=== PATIENT | female | born 1985 | race Caucasian/White ===

== ENCOUNTER 2016-11-04 15:24 | Emergency (ER) | payer MEDICAID ==
[2016-11-04] MEDS ORDERED: Ketorolac 60 MG/2 ML SDV IM ONE (15:32)
--- NOTE | 2016-11-04 15:35 | EDM.PDOC ---
ED HPI GENERAL MEDICAL PROBLEM - General Chief Complaint: Abdominal Pain Stated Complaint: LOWER BACK PAIN Time Seen by Provider: 11/04/16 15:29 - History of Present Illness INITIAL COMMENTS - FREE TEXT/NARRATIVE: HISTORY AND PHYSICAL: History of present illness: Patient 31-year-old female she concern of acute left lower quadrant abdominal pain she has had similar episodes in the past most recently several months prior which was related to an ovarian cyst she denies vaginal discharge irregular bleeding neurological signs or symptoms trauma or other concern Review of systems: As per history of present illness and below otherwise all systems reviewed and negative. Past medical history: As per history of present illness and as reviewed below otherwise noncontributory. Surgical history: As per history of present illness and as reviewed below otherwise noncontributory. Social history: No reported history of drug or alcohol abuse. Family history: As per history of present illness and as reviewed below otherwise noncontributory. Physical exam: HEENT: Atraumatic, normocephalic, pupils reactive, negative for conjunctival pallor or scleral icterus, mucous membranes moist, throat clear, neck supple, nontender, trachea midline. Lungs: Clear to auscultation, breath sounds equal bilaterally, chest nontender. Heart: S1S2, regular, negative for clicks, rubs, or JVD. Abdomen: Soft, nondistended, mild tenderness left lower quadrant is now localized no rebound no guarding . Negative for masses or hepatosplenomegaly. Negative for costovertebral tenderness. Pelvis: Stable nontender. Genitourinary: Deferred. Rectal: Deferred. Extremities: Atraumatic, negative for cords or calf pain. Neurovascular unremarkable. Neuro: Awake, alert, oriented. Cranial nerves II through XII unremarkable. Cerebellum unremarkable. Motor and sensory unremarkable throughout. Exam nonfocal. Diagnostics: [CBC CMP UA hCG pelvic ultrasound Therapeutics: [Toradol 60 mg IM Impression: [#1 left-sided abdominal pain Definitive disposition and diagnosis as appropriate pending reevaluation and review of above. Left Abdominal Pain Score (Numeric/FACES): 7 - Related Data Allergies Allergy/AdvReac Type Severity Reaction Status Date / Time Penicillins Allergy Other Verified 11/04/16 15:28 Home Meds: Home Meds . [No Known Home Meds] 11/04/16 [History] ED ROS GENERAL - Review of Systems Review Of Systems: ROS reveals no pertinent complaints other than HPI. ED EXAM, GENERAL - Physical Exam Exam: See Below (See dictation) Course - Vital Signs Last Recorded V/S: Last Vital Signs Temp 36.6 C 11/04/16 15:34 Pulse 95 11/04/16 15:34 Resp 18 11/04/16 15:34 BP 129/77 11/04/16 15:34 Pulse Ox 98 11/04/16 15:34 - Orders/Labs/Meds Labs: Laboratory Tests 11/04/16 11/04/16 11/04/16 Range/Units 15:40 15:40 15:40 WBC 11.26 H (4.0-11.0) K/uL RBC 4.61 (4.30-5.90) M/uL Hgb 13.2 (12.0-16.0) g/dL Hct 40.0 (36.0-46.0) % MCV 86.8 (80.0-98.0) fL MCH 28.6 (27.0-32.0) pg MCHC 33.0 (31.0-37.0) g/dL RDW Std Deviation 44.2 (28.0-62.0) fl RDW Coeff of Antony 14 (11.0-15.0) % Plt Count 386 (150-400) K/uL MPV 9.90 (7.40-12.00) fL Neut % (Auto) 63.0 (48.0-80.0) % Lymph % (Auto) 31.8 (16.0-40.0) % [place] % (Auto) 4.2 (0.0-15.0) % Eos % (Auto) 0.8 (0.0-7.0) % Baso % (Auto) 0.2 (0.0-1.5) % Neut # (Auto) 7.1 H (1.4-5.7) K/uL Lymph # (Auto) 3.6 H (0.6-2.4) K/uL [place] # (Auto) 0.5 (0.0-0.8) K/uL Eos # (Auto) 0.1 (0.0-0.7) K/uL Baso # (Auto) 0.0 (0.0-0.1) K/uL Nucleated RBC % 0.0 /100WBC Nucleated RBCs # 0 K/uL Sodium 140 (136-146) mmol/L Potassium 3.9 (3.5-5.1) mmol/L Chloride 106 (98-110) mmol/L Carbon Dioxide 26 (21-31) mmol/L BUN 7 (6.0-23.0) mg/dL Creatinine 0.6 (0.6-1.5) mg/dL Est Cr Clr Drug Dosing 113.41 mL/min Estimated GFR (MDRD) > 60.0 ml/min Glucose 105 (60-110) mg/dL Calcium 9.0 (8.8-10.8) mg/dL Total Bilirubin 0.3 (0.1-1.5) mg/dL AST 28 (5-40) IU/L ALT 50 (8-54) IU/L Alkaline Phosphatase 80 (40-150) Total Protein 8.1 H (6.0-8.0) g/dL Albumin 4.2 (3.5-5.0) g/dL Globulin 3.9 H (2.0-3.5) g/dL Albumin/Globulin Ratio 1.1 L (1.3-2.8) HCG, Qual NEGATIVE (NEG) Urine Color Urine Appearance Urine pH (5.0-8.0) Ur Specific Roosevelt (1.001-1.035) Urine Protein (NEGATIVE) mg/dL Urine Glucose (UA) (NEGATIVE) mg/dL Urine Ketones (NEGATIVE) mg/dL Urine Occult Blood (NEGATIVE) Urine Nitrite (NEGATIVE) Urine Bilirubin (NEGATIVE) Urine Urobilinogen (<2.0) EU/dL Ur Leukocyte Esterase (NEGATIVE) Urine RBC (0-2/HPF) Urine WBC (0-5/HPF) Ur Epithelial Cells (NONE-FEW) Urine Bacteria (NEGATIVE) 11/04/16 Range/Units 15:43 WBC (4.0-11.0) K/uL RBC (4.30-5.90) M/uL Hgb (12.0-16.0) g/dL Hct (36.0-46.0) % MCV (80.0-98.0) fL MCH (27.0-32.0) pg MCHC (31.0-37.0) g/dL RDW Std Deviation (28.0-62.0) fl RDW Coeff of Antony (11.0-15.0) % Plt Count (150-400) K/uL MPV (7.40-12.00) fL Neut % (Auto) (48.0-80.0) % Lymph % (Auto) (16.0-40.0) % [place] % (Auto) (0.0-15.0) % Eos % (Auto) (0.0-7.0) % Baso % (Auto) (0.0-1.5) % Neut # (Auto) (1.4-5.7) K/uL Lymph # (Auto) (0.6-2.4) K/uL [place] # (Auto) (0.0-0.8) K/uL Eos # (Auto) (0.0-0.7) K/uL Baso # (Auto) (0.0-0.1) K/uL Nucleated RBC % /100WBC Nucleated RBCs # K/uL Sodium (136-146) mmol/L Potassium (3.5-5.1) mmol/L Chloride (98-110) mmol/L Carbon Dioxide (21-31) mmol/L BUN (6.0-23.0) mg/dL Creatinine (0.6-1.5) mg/dL Est Cr Clr Drug Dosing mL/min Estimated GFR (MDRD) ml/min Glucose (60-110) mg/dL Calcium (8.8-10.8) mg/dL Total Bilirubin (0.1-1.5) mg/dL AST (5-40) IU/L ALT (8-54) IU/L Alkaline Phosphatase (40-150) Total Protein (6.0-8.0) g/dL Albumin (3.5-5.0) g/dL Globulin (2.0-3.5) g/dL Albumin/Globulin Ratio (1.3-2.8) HCG, Qual (NEG) Urine Color YELLOW Urine Appearance CLEAR Urine pH 7.5 (5.0-8.0) Ur Specific [place] 1.020 (1.001-1.035) Urine Protein NEGATIVE (NEGATIVE) mg/dL Urine Glucose (UA) NEGATIVE (NEGATIVE) mg/dL Urine Ketones NEGATIVE (NEGATIVE) mg/dL Urine Occult Blood NEGATIVE (NEGATIVE) Urine Nitrite POSITIVE H (NEGATIVE) Urine Bilirubin NEGATIVE (NEGATIVE) Urine Urobilinogen 0.2 (<2.0) EU/dL Ur Leukocyte Esterase NEGATIVE (NEGATIVE) Urine RBC 2-4 (0-2/HPF) Urine WBC 4-6 (0-5/HPF) Ur Epithelial Cells MODERATE (NONE-FEW) Urine Bacteria 1+ H (NEGATIVE) Meds: Medications Discontinued Medications Generic Name Dose Route Start Last Admin Trade Name Zan PRN Reason Stop Dose Admin Ketorolac Tromethamine 60 mg 11/04/16 15:32 11/04/16 15:41 Toradol IM 11/04/16 15:33 60 mg ONETIME ONE Administration Departure - Departure Time of Disposition: 17:36 Disposition: Home, Self-Care 01 Condition: good Clinical Impression: Ovarian cyst Forms: ED Department Discharge Additional Instructions: The following information is given to patients seen in the emergency department who are being discharged to home. This information is to outline your options for follow-up care. We provide all patients seen in our emergency department with a follow-up referral. The need for follow-up, as well as the timing and circumstances, are variable depending upon the specifics of your emergency department visit. If you don't have a primary care physician on staff, we will provide you with a referral. We always advise you to contact your personal physician following an emergency department visit to inform them of the circumstance of the visit and for follow-up with them and/or the need for any referrals to a consulting specialist. The emergency department will also refer you to a specialist when appropriate. This referral assures that you have the opportunity for followup care with a specialist. All of these measure are taken in an effort to provide you with optimal care, which includes your followup. Under all circumstances we always encourage you to contact your private physician who remains a resource for coordinating your care. When calling for followup care, please make the office aware that this follow-up is from your recent emergency room visit. If for any reason you are refused follow-up, please contact the [facility] emergency department at and asked to speak to the emergency department charge nurse. [facility] Primary Care - Women's Health [address] [place] [id number] [address]issa primary medical doctor/TELEVISION WRITER Ryan as prescribed return as needed as discussed
[2016-11-04 16:19] LABS: CHLORIDE,CL 106 mmol/L (98-110); SODIUM,NA 140 mmol/L (136-146)
--- NOTE | 2016-11-04 17:05 | US ---
EXAM DATE: 11/04/16 PATIENT'S AGE: 31 Patient: KARIN GRIFFIN Facility: [place], [place] Site . Site : 1985 Study: US Pelvis [id number]/24/2017 4:13:34 PM Ordering Physician: Doctor Arceo Final Report: INDICATION: Pelvic pain in the left lower quadrant TECHNIQUE: Ultrasound pelvis transvaginal for better assessment or to better visualize the endometrium. Real-time sonographic images with spectral and color Doppler imaging of the ovaries were obtained. COMPARISON: None FINDINGS: Uterus: 7.9 x 5.7 x 4 cm. Normal echotexture of the myometrium noted. No masses are seen. Endometrium: 10 mm in thickness. A small amount of endometrial fluid is present near the uterine fundus. An IUD is present in the uterine cavity near the fundus with no identified complications. Right ovary: 1.6 x 2.3 x 2.4 cm. No ovarian or adnexal masses noted. Normal arterial and venous blood flow seen in the ovary. Left ovary: 4.6 x 2.9 x 3.6 cm. There is a cystic lesion seen in the left adnexa measuring 2.9 x 3.6 cm. Normal arterial and venous blood flow seen in the ovary. Cul-de-sac: No significant ascites noted. IMPRESSION: 1. Left ovarian cystic lesion is present measuring up to 3.6 cm. By the 2009 Consensus Panel Criteria, followup ultrasound in 6-12 weeks is recommended. 2. A small amount of nonspecific fluid is seen in the uterine cavity near the fundus. 3. IUD noted in the uterus. Dictated by Bossman Roldan MD @ 11/04/2016 4:33:45 PM Dictated by: Bossman Roldan MD @ 11/04/2016 16:33:50 (Electronic Signature) Report Signed by Proxy and Original Signed Document filed in the Medical Record. MTDD
[2016-11-04 17:50] VITALS: BP 118/75
== END 2016-11-04 17:48 | disposition home or self-care (01) ==
LOC: MW.ED 15:24
DX: N83.202 Unspecified ovarian cyst, left side (principal); Z88.0 Allergy status to penicillin
CPT/HCPCS: 36415; 76856; 80053; 81001; 84703; 85025; 96372; 99284; J1885; 99283

== ENCOUNTER 2016-11-08 07:55 | Emergency (ER) | payer MEDICAID ==
[2016-11-08] MEDS ORDERED: Ondansetron 4 MG/2 ML SDV IVPUSH ONE ×2 (07:57→08:51)
[2016-11-08] MEDS ORDERED: Sodium Chloride 0.9% 1,000 ML IV ONE (07:57)
[2016-11-08] MEDS ORDERED: Ketorolac 30 MG/ML SDV IVPUSH ONE ×2 (07:58→09:21)
--- NOTE | 2016-11-08 08:01 | EDM.PDOC ---
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 There's been no fever no chills no vaginal discharge irregular bleeding other Review of systems: As per history of present illness and below otherwise all systems reviewed and negative. Past medical history: As per history of present illness and as reviewed below otherwise noncontributory. Surgical history: As per history of present illness and as reviewed below otherwise noncontributory. Social history: No reported history of drug or alcohol abuse. Family history: As per history of present illness and as reviewed below otherwise noncontributory. Physical exam: HEENT: Atraumatic, normocephalic, pupils reactive, negative for conjunctival pallor or scleral icterus, mucous membranes moist, throat clear, neck supple, nontender, trachea midline. Lungs: Clear to auscultation, breath sounds equal bilaterally, chest nontender. Heart: S1S2, regular, negative for clicks, rubs, or JVD. Abdomen: Soft, nondistended, left lower quadrant tenderness nonlocalized no rebound no guarding Negative for masses or hepatosplenomegaly. Negative for costovertebral tenderness. Pelvis: Stable nontender. Genitourinary: Deferred. Rectal: Deferred. Extremities: Atraumatic, negative for cords or calf pain. Neurovascular unremarkable. Neuro: Awake, alert, oriented. Cranial nerves II through XII unremarkable. Cerebellum unremarkable. Motor and sensory unremarkable throughout. Exam nonfocal. Diagnostics: CBC CMP UA hCG pelvic ultrasound Therapeutics: Normal saline 1 L bolus Zofran 4 mg IV Toradol 30 mg IV Impression: #1 history of left ovarian cyst #2 vomiting #3 left lower quadrant abdominal pain Definitive disposition and diagnosis as appropriate pending reevaluation and review of above. 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 ED EXAM, GENERAL - Physical Exam Exam: See Below (See dictation) Course - Vital Signs Text/Narrative:: OB Dr. Alvarez was consult and saw the patient in the emergency department CT scan for this left lower quadrant pain with negative for renal or ureteral calculi patient was incidentally found to have cholelithiasis left ovarian cyst measuring 4.4 cm as was identified on prior ultrasound was again identified on CT. Patient discharged to followup with Dr. Pearl in a private medical doctor she 'll also be given Gen. surgery referral for the incidental finding of cholelithiasis Last Recorded V/S: Last Vital Signs Temp 36.4 C 11/08/16 08:02 Pulse 93 11/08/16 08:02 Resp 18 11/08/16 08:02 BP 125/103 H 11/08/16 08:02 Pulse Ox 96 11/08/16 08:02 - Orders/Labs/Meds Orders: Active Orders 24 hr Category Date Time Status Abdomen Pelvis wo Cont [CT] Stat Exams 11/08/16 10:03 Taken Pelvis Non OB Comp [US] Stat Exams 11/08/16 07:59 Taken UA W/MICROSCOPIC [URIN] Stat Lab 11/08/16 07:57 Uncollected Labs: Laboratory Tests 11/08/16 11/08/16 11/08/16 Range/Units 08:12 08:12 08:12 WBC 11.77 H (4.0-11.0) K/uL RBC 4.52 (4.30-5.90) M/uL Hgb 13.0 (12.0-16.0) g/dL Hct 39.0 (36.0-46.0) % MCV 86.3 (80.0-98.0) fL MCH 28.8 (27.0-32.0) pg MCHC 33.3 (31.0-37.0) g/dL RDW Std Deviation 44.1 (28.0-62.0) fl RDW Coeff of Antony 14 (11.0-15.0) % Plt Count 372 (150-400) K/uL MPV 10.30 (7.40-12.00) fL Neut % (Auto) 63.4 (48.0-80.0) % Lymph % (Auto) 31.0 (16.0-40.0) % [place] % (Auto) 4.8 (0.0-15.0) % Eos % (Auto) 0.6 (0.0-7.0) % Baso % (Auto) 0.2 (0.0-1.5) % Neut # (Auto) 7.5 H (1.4-5.7) K/uL Lymph # (Auto) 3.7 H (0.6-2.4) K/uL [place] # (Auto) 0.6 (0.0-0.8) K/uL Eos # (Auto) 0.1 (0.0-0.7) K/uL Baso # (Auto) 0.0 (0.0-0.1) K/uL Nucleated RBC % 0.0 /100WBC Nucleated RBCs # 0 K/uL Sodium 138 (136-146) mmol/L Potassium 3.7 (3.5-5.1) mmol/L Chloride 107 (98-110) mmol/L Carbon Dioxide 21 (21-31) mmol/L BUN 8 (6.0-23.0) mg/dL Creatinine 0.7 (0.6-1.5) mg/dL Est Cr Clr Drug Dosing 101.48 mL/min Estimated GFR (MDRD) > 60.0 ml/min Glucose 126 H (60-110) mg/dL Calcium 8.8 (8.8-10.8) mg/dL Total Bilirubin 0.3 (0.1-1.5) mg/dL AST 26 (5-40) IU/L ALT 41 (8-54) IU/L Alkaline Phosphatase 76 (40-150) Total Protein 7.7 (6.0-8.0) g/dL Albumin 4.2 (3.5-5.0) g/dL Globulin 3.5 (2.0-3.5) g/dL Albumin/Globulin Ratio 1.2 L (1.3-2.8) HCG, Qual NEGATIVE (NEG) Meds: Medications Discontinued Medications Generic Name Dose Route Start Last Admin Trade Name Zan PRN Reason Stop Dose Admin Sodium Chloride 1,000 mls @ 999 mls/hr 11/08/16 07:57 11/08/16 08:14 Normal Saline IV 11/08/16 08:57 999 mls/hr .Bolus ONE Administration Ketorolac Tromethamine 30 mg 11/08/16 07:58 11/08/16 08:14 Toradol IVPUSH 11/08/16 07:59 30 mg ONETIME ONE Administration Ketorolac Tromethamine 30 mg 11/08/16 09:21 11/08/16 09:27 Toradol IVPUSH 11/08/16 09:22 30 mg ONETIME ONE Administration Ondansetron HCl 4 mg 11/08/16 07:57 11/08/16 08:14 Zofran IVPUSH 11/08/16 07:58 4 mg ONETIME ONE Administration Ondansetron HCl 4 mg 11/08/16 08:51 11/08/16 08:54 Zofran IVPUSH 11/08/16 08:52 4 mg ONETIME ONE Administration Departure - Departure Time of Disposition: 11:23 Disposition: Home, Self-Care 01 Condition: good Clinical Impression: Ovarian cyst, Cholelithiasis, Abdominal pain Forms: ED Department Discharge Additional Instructions: The following information is given to patients seen in the emergency department who are being discharged to home. This information is to outline your options for follow-up care. We provide all patients seen in our emergency department with a follow-up referral. The need for follow-up, as well as the timing and circumstances, are variable depending upon the specifics of your emergency department visit. If you don't have a primary care physician on staff, we will provide you with a referral. We always advise you to contact your personal physician following an emergency department visit to inform them of the circumstance of the visit and for follow-up with them and/or the need for any referrals to a consulting specialist. The emergency department will also refer you to a specialist when appropriate. This referral assures that you have the opportunity for followup care with a specialist. All of these measure are taken in an effort to provide you with optimal care, which includes your followup. Under all circumstances we always encourage you to contact your private physician who remains a resource for coordinating your care. When calling for followup care, please make the office aware that this follow-up is from your recent emergency room visit. If for any reason you are refused follow-up, please contact the [facility] emergency department at and asked to speak to the emergency department charge nurse. [facility] Specialty Care - General Surgery Professional Building [address] [place] [address], [address] [place] [address] [address] Alvarez call to schedule appointment followup Gen. surgery above regarding gallstones return as needed as discussed - My Orders Last 24 Hours: My Active Orders 11/08/16 07:57 UA W/MICROSCOPIC [URIN] Stat 11/08/16 07:59 Pelvis Non OB Comp [US] Stat 11/08/16 10:03 Abdomen Pelvis wo Cont [CT] Stat - Assessment/Plan Last 24 Hours: My Active Orders 11/08/16 07:57 UA W/MICROSCOPIC [URIN] Stat 11/08/16 07:59 Pelvis Non OB Comp [US] Stat 11/08/16 10:03 Abdomen Pelvis wo Cont [CT] Stat
[2016-11-08 08:59] LABS: CHLORIDE,CL 107 mmol/L (98-110); SODIUM,NA 138 mmol/L (136-146)
[2016-11-08 12:21] VITALS: BP 117/83
--- NOTE | 2016-11-10 16:10 | US ---
EXAM DATE: 11/08/16 PATIENT'S AGE: 31 Patient: KARIN GRIFFIN Facility: [place], [place] Site . Site : 1985 Study: US Pelvis [id number]/28/2017 9:26:54 AM Ordering Physician: Doctor Arceo Final Report: INDICATION: HX CYST INCREASED NAUSEA HISTORY: Left adnexal cyst. COMPARISON: 11/04/2016. TECHNIQUE: Transabdominal and endovaginal imaging of the pelvis was obtained. Endovaginal imaging of the pelvis was obtained to better evaluate the adnexa and endometrial complex. Color/spectral Doppler was performed to evaluate for ovarian torsion. FINDINGS: There is an IUD in the uterine corpus. This appears appropriately positioned. The uterus measures 8.4 cm in length. There is no endometrial or myometrial mass. The right ovary measures 1.9 x 2.3 x 2.2 cm. The left ovary measures 2.1 x 1.9 x 2.4 cm. There is a cystic structure in the left adnexa which measures 4.1 x 4.6 x 3.5 cm. This may represent a paraovarian cyst. There is no flow on color Doppler, and there is posterior acoustic enhancement. IMPRESSION: 1. Left adnexal cyst persists. This is potentially paraovarian, but there are no suspicious features on grayscale imaging. As indicated previously, sonographic followup is advised. 2. There is no suspicious adnexal mass. 3. IUD in the uterine corpus. This appears appropriately positioned. 4. Normal, low resistance arterial blood flow is preserved to both ovaries on color/spectral Doppler. No findings to indicate ovarian torsion. Dictated by Chad Lei MD @ 11/08/2016 9:32:04 AM Dictated by: Chad Lei MD @ 11/08/2016 09:32:13 (Electronic Signature) Report Signed by Proxy. HUMBERTO
--- NOTE | 2016-11-10 16:26 | CT ---
EXAM DATE: 11/08/16 PATIENT'S AGE: 31 Patient: KARIN GRIFFIN Facility: [place], [place] Site . Site : 1985 Study: CT Abdomen/Pelvis [id number]/28/2017 10:50:48 AM Ordering Physician: Max Lipscomb Final Report: INDICATION : Left flank pain and lower abdominal pain. TECHNIQUE : Noncontrast CT scan of the abdomen and pelvis. NO IV CONTRAST Please note that all CT scans at this facility use dose modulation, iterative reconstruction and/or weight-based dosing when appropriate to reduce radiation dose to as low as reasonably achievable(ALARA). COMPARISON: Pelvic ultrasound earlier on 11/08/2016. FINDINGS : Transfer Table Operator Helper CT images demonstrate nonobstructive bowel gas pattern. IUD noted in the central pelvis. Multiple calcifications in the right upper abdominal quadrant, likely due to numerous gallstones. Right and left kidneys are normal size and position. No renal calculi. No hydronephrosis. Bladder is unremarkable. No abdominal or pelvic mass, ascites, or adenopathy. Bowel loops show normal caliber. Liver, spleen, adrenal glands and pancreas unremarkable. Numerous calcified gallstones are present. No abnormal biliary dilatation or acute inflammatory changes in the gallbladder fossa. Satisfactory positioning of IUD in the endometrial canal. No pelvic fluid or lymphadenopathy. Left ovarian cyst noted, measuring 4.4 centimeters. Left ovarian cyst well characterized on earlier pelvic ultrasound. Lung bases are clear. No suspicious skeletal lesions. IMPRESSION : 1. Left ovarian cyst, measuring 4.4 centimeters. No suspicious findings on the earlier pelvic ultrasound studies dated 11/04/2016 and 11/08/2016. 2. No renal or ureteral calculi. 3. Cholelithiasis. Dictated by Luis Armando Whalen MD @ 11/08/2016 11:12:57 AM Dictated by: Luis Armando Whalen MD @ 11/08/2016 11:13:04 (Electronic Signature) Report Signed by Proxy. MTDD
--- NOTE | 2016-11-11 06:32 | CONS ---
DATE OF CONSULTATION: DATE OF : 1985 PRIMARY CARE PHYSICIAN: None PCP Ms. Fuentes is 31 years old patient. I was called by the ER doctor to evaluate the patient. For the purpose of this consultation, I reviewed the vital signs of this patient, which shows her vital signs are stable. I reviewed her lab work, which shows mildly elevated white cells of 11,000 and some trace of blood, and wbc's is in the urine, otherwise negative. I also reviewed her ultrasound, which shows a small ovarian cyst on the right side without any torsion and the patient used a Mirena IUD for her control. Examination of the abdomen is totally benign. There is minimum tenderness and there is no rebound tenderness. The patient said her pain started on the back on her right side and is radiated down to her right thigh. Pelvic examination is performed by the emergency room and it is reported to be negative. Based on the consultation and examination, I do not think that this small ovarian cyst could cause her pain. I think probably we should rule out renal calculi and I suggested that to the emergency room to do appropriate study to rule out that; however, if this ruled out, then it is appropriate to start the patient on control pills for 2 to 3 months to see if this resolves the issue with her ovarian cyst. I am suggesting for her to have a followup examination in the office sometime down the road. LÁZARO MALDONADO /[id number]
== END 2016-11-08 12:19 | disposition home or self-care (01) ==
LOC: MW.ED 07:55
DX: K80.20 Calculus of gallbladder without cholecystitis without obstruction (principal); N83.209 Unspecified ovarian cyst, unspecified side; R11.2 Nausea with vomiting, unspecified; R10.32 Left lower quadrant pain; Z88.0 Allergy status to penicillin
CPT/HCPCS: 36415; 74176; 76856; 80053; 81001; 84703; 85025; 96361; 96374; 96375; 96376; 99284; J1885; J2405; J7040

== ENCOUNTER → 2016-11-11 | Outpatient (CLI) | payer MEDICAID | LOC: MW.CHOBGYN 15:47 | PROVIDERS: ATTEND Obstetrics & Gynecology | DX: R30.0 Dysuria (principal) | CPT/HCPCS: 81001 ==

== ENCOUNTER 2019-08-08 03:13 | Emergency (ER) | payer MEDICAID ==
[2019-08-08 03:30] VITALS: BP 114/67; PULSE 125
[2019-08-08] MEDS ORDERED: Sodium Chloride 0.9% 2.5 ML Syringe FLUSH PRN (03:33)
[2019-08-08] MEDS ORDERED: Sodium Chloride 0.9% 10 ML Syringe FLUSH PRN (03:33)
--- NOTE | 2019-08-08 03:33 | EDM.PDOC ---
ED HPI GENERAL MEDICAL PROBLEM - General Chief Complaint: Fever Stated Complaint: 30WKS WITH FEVER Time Seen by Provider: 08/08/19 03:15 - History of Present Illness INITIAL COMMENTS - FREE TEXT/NARRATIVE: HISTORY AND PHYSICAL: History of present illness: Patient is a 33-year-old female who is a 3 para 2 and is approximately 30 weeks and follows with Ni Dominique our nurse practitioner in the clinic and presents with complaints of cough and feeling like there is phlegm stuck in her chest, chest pain with cough and lower abdominal pain with coughing and a subjective fever. The patient says that she felt fine on Friday but woke Friday morning with the symptoms and they have been persistent for the last 24 hours. She said that she had a subjective fever and took a dose of Tylenol, 500 mg, approximately 45 minutes ago and currently does not feel hot or sweaty. She is currently afebrile. She says that she has chest discomfort mostly from the cough and she did not have it prior to 24 hours ago. She has no abdominal pain no vaginal bleeding or discharge but says that the baby has not been moving very much since approximately 9 PM, 6-1/2 hours ago. She says the baby is very active at nighttime and this is unusual and she is concerned about that as well. Her has upper respiratory symptoms for the last 3 days and has been treating them symptomatically at home. She did not get her influenza shot this year and denies tobacco use. She has been eating and drinking normally and has no urinary complaints no flank pain and does not feel short of breath except when she is coughing. The patient denies any nasal drainage or sinus congestion or pressure and does not have a sore throat Review of systems: As per history of present illness and below otherwise all systems reviewed and negative. Past medical history: As per history of present illness and as reviewed below otherwise noncontributory. Surgical history: As per history of present illness and as reviewed below otherwise noncontributory. Social history: No reported history of drug or alcohol abuse. Family history: As per history of present illness and as reviewed below otherwise noncontributory. Physical exam: General: Well-developed well-nourished female who is visibly gravid and is speaking in full sentences without breathlessness or work of breathing. HEENT: Atraumatic, normocephalic, pupils reactive, negative for conjunctival pallor or scleral icterus, mucous membranes moist, throat clear, neck supple, nontender, trachea midline. Throat is without any erythema or exudates and there is no cervical adenopathy and there is no gross nasal drainage appreciated. She does not have a sinus quality to her voice. Lungs: Clear to auscultation, breath sounds equal bilaterally, chest nontender. No wheezing stridor or work of breathing and no specific chest wall tenderness on palpation Heart: S1S2, regular rhythm only tachycardic rate on my evaluation no overt murmurs Abdomen: Soft, nondistended, some mild lower abdominal tenderness diffusely without rebound or guarding, grAvid uterus heart tones were performed when I was in the room and they were 144 just to the left of the umbilicus and inferiorly Pelvis: Stable nontender. Genitourinary: Deferred. Rectal: Deferred. Extremities: Atraumatic, negative for cords or calf pain. Neurovascular unremarkable. No pedal edema or leg asymmetry Neuro: Awake, alert, oriented. Cranial nerves II through XII unremarkable. Cerebellum unremarkable. Motor and sensory unremarkable throughout. Exam nonfocal. Diagnostics: heart tones, influenza chest x-ray UA with reflex chest x-ray CMP Therapeutics: IV fluids I will discuss this case with the patient's nurse tool maintenance worker to see if she wants the NST performed down here in the emergency department or she would like the patient go to labor and delivery. 0340: Case Was discussed with Ni Dominique who would like the patient to have a mask placed on until we are sure she is influenza negative and wants the patient to go to labor and delivery once we have sent off all the testing and done the chest x-ray. She is aware of my concerns with the maternal heart rate and the patient's presenting symptoms of the fever subjectively, the cough and poor movement for the last 6+ hours. She said that she will follow-up all the testing that I have ordered and will disposition the patient from labor and delivery. Labor and delivery has also been notified and is aware of this plan. Impression: Respiratory symptoms with subjective fever, poor movement in third trimester Definitive disposition and diagnosis as appropriate pending reevaluation and review of above. chest Pain Score (Numeric/FACES): 7 - Related Data Allergies Allergy/AdvReac Type Severity Reaction Status Date / Time Penicillins Allergy Rash Verified 08/08/19 03:30 Home Meds: Home Meds . 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 ED EXAM, GENERAL - Physical Exam Exam: See Below (see Dictation) Course - Vital Signs Last Recorded V/S: Last Vital Signs Temp 37.4 C 08/08/19 03:22 Pulse 125 H 08/08/19 03:22 Resp 23 H 08/08/19 03:22 BP 114/67 08/08/19 03:22 Pulse Ox 96 08/08/19 03:22 - Orders/Labs/Meds Orders: Active Orders 24 hr Category Date Time Status Communication Order [RC] STAT Care 08/08/19 03:22 Active Chest 2V [CR] Stat Exams 08/08/19 03:28 Ordered CBC WITH AUTO DIFF [HEME] Stat Lab 08/08/19 03:28 Ordered COMPREHENSIVE METABOLIC PN,CMP [CHEM] Stat Lab 08/08/19 03:34 Ordered INFLUENZA A+B AG SCREEN [RM] Stat Lab 08/08/19 03:30 Received UA RFX DESI AND CULT IF INDIC [URIN] Stat Lab 08/08/19 03:28 Ordered Sodium Chloride 0.9% [Normal Saline] 1,000 ml Med 08/08/19 03:34 Active IV STAT Sodium Chloride 0.9% [Saline Flush] Med 08/08/19 03:33 Active 10 ml FLUSH ASDIRECTED PRN Sodium Chloride 0.9% [Saline Flush] Med 08/08/19 03:33 Active 2.5 ml FLUSH ASDIRECTED PRN Saline Lock Insert [OM.PC] Stat Oth 08/08/19 03:34 Ordered Medication Orders Sodium Chloride (Normal Saline) 1,000 mls @ 999 mls/hr IV STAT ONE Stop: 08/08/19 04:34 Sodium Chloride (Saline Flush) 10 ml FLUSH ASDIRECTED PRN PRN Reason: Keep Vein Open Sodium Chloride (Saline Flush) 2.5 ml FLUSH ASDIRECTED PRN PRN Reason: Keep Vein Open Meds: Medications Generic Name Dose Route Start Last Admin Trade Name Freq PRN Reason Stop Dose Admin Sodium Chloride 1,000 mls @ 999 mls/hr 08/08/19 03:34 Normal Saline IV 08/08/19 04:34 STAT ONE Sodium Chloride 10 ml 08/08/19 03:33 Saline Flush FLUSH ASDIRECTED PRN Keep Vein Open Sodium Chloride 2.5 ml 08/08/19 03:33 Saline Flush FLUSH ASDIRECTED PRN Keep Vein Open Departure - Departure Time of Disposition: 03:50 Disposition: Still A Patient 30 Condition: Good Clinical Impression: Upper respiratory symptom, Third trimester Decreased movement Qualifiers: Fetus number: single or unspecified fetus Trimester: third trimester Qualified Code(s): O36.8130 - Decreased movements, third trimester, not applicable or unspecified - Discharge Information Referrals: PCP,None [Primary Care Provider] - Forms: ED Department Discharge Sepsis Event Note - Focused Exam Vital Signs: Vital Signs Temp Pulse Resp BP Pulse Ox 08/08/19 03:22 37.4 C 125 H 23 H 114/67 96 Date Exam was Performed: 08/08/19 Time Exam was Performed: 03:45 - My Orders Last 24 Hours: My Active Orders 08/08/19 03:22 Communication Order [RC] STAT 08/08/19 03:28 Chest 2V [CR] Stat CBC WITH AUTO DIFF [HEME] Stat UA RFX DESI AND CULT IF INDIC [URIN] Stat 08/08/19 03:30 INFLUENZA A+B AG SCREEN [RM] Stat 08/08/19 03:33 Sodium Chloride 0.9% [Saline Flush] 10 ml FLUSH ASDIRECTED PRN Sodium Chloride 0.9% [Saline Flush] 2.5 ml FLUSH ASDIRECTED PRN 08/08/19 03:34 COMPREHENSIVE METABOLIC PN,CMP [CHEM] Stat Sodium Chloride 0.9% [Normal Saline] 1,000 ml IV STAT Saline Lock Insert [OM.PC] Stat - Assessment/Plan Last 24 Hours: My Active Orders 08/08/19 03:22 Communication Order [RC] STAT 08/08/19 03:28 Chest 2V [CR] Stat CBC WITH AUTO DIFF [HEME] Stat UA RFX DESI AND CULT IF INDIC [URIN] Stat 08/08/19 03:30 INFLUENZA A+B AG SCREEN [RM] Stat 08/08/19 03:33 Sodium Chloride 0.9% [Saline Flush] 10 ml FLUSH ASDIRECTED PRN Sodium Chloride 0.9% [Saline Flush] 2.5 ml FLUSH ASDIRECTED PRN 08/08/19 03:34 COMPREHENSIVE METABOLIC PN,CMP [CHEM] Stat Sodium Chloride 0.9% [Normal Saline] 1,000 ml IV STAT Saline Lock Insert [OM.PC] Stat
[2019-08-08] MEDS ORDERED: Sodium Chloride 0.9% 1,000 ML IV ONE (03:34)
[2019-08-08 04:15] LABS: BLOOD UREA NITROGEN,BUN 4 mg/dL (7.0-18.0); CARBON DIOXIDE,CO2 20.1 mmol/L (21.0-32.0); CHLORIDE,CL 101 mmol/L (98-107); GLUCOSE RANDOM 111 mg/dL (74-106); POTASSIUM,K 3.5 mmol/L (3.5-5.1); SODIUM,NA 136 mmol/L (136-145)
--- NOTE | 2019-08-08 04:57 | CR ---
Indication: Fever Technique: Chest 1 view Comparison: None Findings/Impression: Cardiovascular and mediastinum: Heart size and vasculature are normal in caliber and appearance. Mediastinum is within normal limits. Lungs and pleural space: A mildly elevated right hemidiaphragm. No lobar consolidation or pleural effusions. Mildly increased attenuation in the mid and lower lungs is related to overlying soft tissues. Bones and soft tissues: No significant findings. Dictated by Ankit Miramontes MD @ 08/08/2019 4:55:49 AM Dictated by: Ankit Miramontes MD @ 08/08/2019 04:55:53 (Electronically Signed)
== END 2019-08-08 04:15 | disposition still patient (30) ==
LOC: MW.ED 03:13
DX: O99.513 Diseases of the respiratory system complicating pregnancy, third trimester (principal); J06.9 Acute upper respiratory infection, unspecified; Z88.0 Allergy status to penicillin; Z3A.30 30 weeks gestation of pregnancy
CPT/HCPCS: 36415; 71045; 80053; 81001; 85025; 87086; 87804; 99284; J7030

== ENCOUNTER 2019-10-04 18:25 | Inpatient (IN) | payer MEDICAID ==
[2019-10-04] MEDS ORDERED: Ropivacaine 0.2% PF 2 MG/ML 20 ML SDV ONE (20:52)
[2019-10-04] MEDS ORDERED: Bupivicaine/fentaNYL/NS 250 ML ONE (20:52)
[2019-10-04] MEDS ORDERED: Butorphanol 1 MG/ML SDV IVPUSH PRN (20:56)
[2019-10-04] MEDS ORDERED: Methylergonovine 0.2 MG/1 ML Amp IM PRN (20:56)
[2019-10-04] MEDS ORDERED: Carboprost Tromethamine 250 MCG/1 ML Amp IM PRN (20:56)
[2019-10-04] MEDS ORDERED: Sodium Chloride 0.9% 10 ML SDV IV PRN (20:56)
[2019-10-04] MEDS ORDERED: Misoprostol 200 MCG Tab PO PRN (20:56)
[2019-10-04] MEDS ORDERED: Ondansetron 4 MG/2 ML SDV IVPUSH PRN (20:56)
[2019-10-04] MEDS ORDERED: Lidocaine 1% 50 ML MDV INJECT PRN (20:56)
[2019-10-04] MEDS ORDERED: Tranexamic Acid 1,000 MG in Sodium Chloride 0.9% 100 ML IV PRN (20:56)
[2019-10-04] MEDS ORDERED: Sodium Chloride 0.9% 10 ML Syringe FLUSH PRN (20:56)
[2019-10-04] MEDS ORDERED: Sodium Chloride 0.9% 2.5 ML Syringe FLUSH PRN (20:56)
[2019-10-04] MEDS ORDERED: Water For Irrigation,Sterile 1,000 ML Container IRR PRN (20:56)
[2019-10-04] MEDS ORDERED: Nalbuphine 10 MG/1 ML Vial IVPUSH PRN (20:56)
--- NOTE | 2019-10-04 20:57 | PCM.PREANE ---
Preanesthetic Assessment - Procedure Proposed Procedure: labor epidural - Anesthesia/Transfusion/Family Hx Anesthesia History: No Prior Anesthesia Family History of Anesthesia Reaction: No Transfusion History: No Prior Transfusion(s) Intubation History: Unknown - Review of Systems General: No Symptoms Pulmonary: No Symptoms Cardiovascular: No Symptoms Gastrointestinal: No Symptoms Neurological: No Symptoms Other: Reports: None - Physical Assessment Height: 5 ft 4 in Weight: 90.265 kg ASA Class: 2 Mental Status: Alert & Oriented x3 Airway Class: Mallampati = 2 Dentition: Reports: Normal Dentition Thyro-Mental Finger Breadths: 3 Mouth Opening Finger Breadths: 3 ROM/Head Extension: Full Lungs: Clear to Auscultation, Normal Respiratory Effort Cardiovascular: Regular Rate, Regular Rhythm - Allergies Allergies/Adverse Reactions: Allergies Allergy/AdvReac Type Severity Reaction Status Date / Time Penicillins Allergy Rash Verified 08/08/19 03:30 - Blood Blood Available: Yes Product(s) Available: PRBC - Anesthesia Plan Pre-Op Medication Ordered: None - Acknowledgements Anesthesia Type Planned: Epidural Pt an Appropriate Candidate for the Planned Anesthesia: Yes Alternatives and Risks of Anesthesia Discussed w Pt/Guardian: Yes Pt/Guardian Understands and Agrees with Anesthesia Plan: Yes PreAnesthesia Questionnaire - Past Health History Medical/Surgical History: Denies 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
[2019-10-04] MEDS ORDERED: Oxytocin/0.9 % Sodium Chloride 30 UNIT/500 ML BAG IV SCH (21:00)
[2019-10-04] MEDS: Lactated Ringers 1,000 ML IV SCH ×2 (21:16→21:45)
[2019-10-05] MEDS ORDERED: Benzocaine/Menthol 20%-0.5% Spray 78 GM Cannister TOP PRN (02:35)
[2019-10-05] MEDS ORDERED: oxyCODONE 5 MG Tab PO PRN (02:35)
[2019-10-05] MEDS ORDERED: Acetaminophen 500 MG Tab PO PRN ×2 (02:35)
[2019-10-05] MEDS ORDERED: Bisacodyl 10 MG Supp RECTAL PRN (02:35)
[2019-10-05] MEDS ORDERED: Docusate Sodium 100 MG Cap PO PRN (02:35)
[2019-10-05] MEDS ORDERED: Lanolin 100% Cream 7 GM Tube TOP PRN (02:35)
[2019-10-05] MEDS ORDERED: Ibuprofen 400 MG Tab PO PRN (02:35)
[2019-10-05] MEDS ORDERED: Witch Hazel Medicated Pads 40/Jar TOP PRN (02:35)
--- NOTE | 2019-10-05 02:35 | PCM.LDHP ---
L&D History of Present Illness - General Date of Service: 10/05/19 Admit Problem/Dx: Patient Status Order with Admit Dx/Problem 10/04/19 18:47 Patient Status [ADT] Routine 10/04/19 20:56 Patient Status [ADT] Routine Admission Diagnosis/Problem Admission Diagnosis/Problem Source of Information: Patient History Limitations: Reports: No Limitations - History of Present Illness Improves with: Reports: None Worsens with: Reports: None Associated Symptoms: Reports: N - Related Data Allergies/Adverse Reactions: Allergies Allergy/AdvReac Type Severity Reaction Status Date / Time Penicillins Allergy Rash Verified 08/08/19 03:30 Home Medications: Home Meds Vits #93/Iron Fum/FA [ Formula Tablet] 1 each PO DAILY [History] Past Medical History - Past Health History Medical/Surgical History: Denies 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: , Other (See Below) Other OB/BYN History: ovarian cysts - Infectious Disease History Infectious Disease History: Reports: Chicken Pox Social & Family History - Family History Family Medical History: Noncontributory - Tobacco Use Smoking Status *Q: Never Smoker Second Hand Smoke Exposure: No - Caffeine Use Caffeine Use: Reports: None - Recreational Drug Use Recreational Drug Use: No H&P Review of Systems - Review of Systems: Review Of Systems: See Below General: Reports: No Symptoms HEENT: Reports: No Symptoms Pulmonary: Reports: No Symptoms Cardiovascular: Reports: No Symptoms Gastrointestinal: Reports: No Symptoms Genitourinary: Reports: No Symptoms Musculoskeletal: Reports: No Symptoms Skin: Reports: No Symptoms Psychiatric: Reports: No Symptoms Neurological: Reports: No Symptoms Hematologic/Lymphatic: Reports: No Symptoms Immunologic: Reports: No Symptoms L&D Exam - Exam Exam: See Below - Vital Signs Weight: 90.718 kg - OB Specific Fundal Height In cm: 38 Contraction Intensity: Moderate Movement: Active Presentation: Vertex - Espinoza Score Espinoza Score Cervix Position: Midposition Espinoza Score Consistency: Soft Espinoza Score Effacement: >80% Espinoza Score Dilation: > 5 cm Espinoza Score 's Station: -2 Espinoza Score Total: 10 - Exam General: Alert, Oriented HEENT: PERRLA, Conjunctiva Clear, EACs Clear, EOMI, Hearing Intact, Mucosa Moist & [place], Nares Patent, Normal Nasal Septum, Posterior Pharynx Clear, TMs Clear Neck: Supple, Trachea Midline Lungs: Clear to Auscultation, Normal Respiratory Effort Cardiovascular: Regular Rate, Regular Rhythm GI/Abdominal Exam: Normal Bowel Sounds, Soft, Non-Tender, No Organomegaly, No Distention, No Abnormal Bruit, No Mass, Pelvis Stable Rectal Exam: Normal Exam, Normal Rectal Tone Genitourinary: Normal external exam, Normal bimanual exam, Normal speculum exam Back Exam: Normal Inspection, Full Range of Motion Extremities: Normal Inspection, Normal Range of Motion, Non-Tender, No Pedal Edema, Normal Capillary Refill Skin: Warm, Dry, Intact Neurological: Cranial Nerves Intact, Reflexes Equal Bilateral Psychiatric: Alert, Normal Affect, Normal Mood - Patient Data Lab Results Last 24 hrs: Laboratory Results - last 24 hr 10/04/19 10/04/19 Range/Units 21:15 21:15 WBC 13.67 H (4.0-11.0) K/uL RBC 4.36 (4.30-5.90) M/uL Hgb 12.7 (12.0-16.0) g/dL Hct 38.4 (36.0-46.0) % MCV 88.1 (80.0-98.0) fL MCH 29.1 (27.0-32.0) pg MCHC 33.1 (31.0-37.0) g/dL RDW Std Deviation 46.0 (28.0-62.0) fl RDW Coeff of Antony 14 (11.0-15.0) % Plt Count 327 (150-400) K/uL MPV 11.00 (7.40-12.00) fL Nucleated RBC % 0.0 /100WBC Nucleated RBCs # 0 K/uL Blood Type O POSITIVE Antibody Screen NEGATIVE Result Diagrams: 10/04/19 21:15 Problem List Initiated/Reviewed/Updated: Yes Orders Last 24hrs: Active Orders 24 hr Category Date Time Status Patient Status [ADT] Routine ADT 10/04/19 20:56 Active May Shower [RC] ASDIRECTED Care 10/04/19 20:56 Active Notify Provider [RC] PRN Care 10/04/19 20:56 Active Up ad Soco [RC] ASDIRECTED Care 10/04/19 20:56 Active Vital Signs [RC] PER UNIT ROUTINE Care 10/04/19 18:47 Active Vital Signs [RC] PER UNIT ROUTINE Care 10/04/19 20:56 Active Regular Diet [DIET] Diet 10/04/19 Breakfast Active RPR (SYPHILIS SERO) W/ RFLX [REF] Routine Lab 10/04/19 21:15 Received Butorphanol [Stadol] Med 10/04/19 20:56 Active 1 mg IVPUSH Q1H PRN Carboprost Tromethamine [Hemabate DS] Med 10/04/19 20:56 Active 250 mcg IM ASDIRECTED PRN Lactated Ringers [Ringers, Lactated] 1,000 ml Med 10/04/19 21:00 Active IV ASDIRECTED Lidocaine 1% [Xylocaine 1%] Med 10/04/19 20:56 Active 50 ml INJECT ONETIME PRN Methylergonovine [Methergine] Med 10/04/19 20:56 Active 0.2 mg IM ASDIRECTED PRN Nalbuphine [Nubain] Med 10/04/19 20:56 Active 10 mg IVPUSH Q1H PRN Ondansetron [Zofran] Med 10/04/19 20:56 Active 4 mg IVPUSH Q6H PRN Oxytocin/0.9 % Sodium Chloride [Oxytocin 30 Unit/500 ML Med 10/04/19 21:00 Active -NS] 30 unit in 500 ml IV TITRATE Sodium Chloride 0.9% [Normal Saline] Med 10/04/19 20:56 Active 10 ml IV ASDIRECTED PRN Sodium Chloride 0.9% [Saline Flush] Med 10/04/19 20:56 Active 10 ml FLUSH ASDIRECTED PRN Sodium Chloride 0.9% [Saline Flush] Med 10/04/19 20:56 Active 2.5 ml FLUSH ASDIRECTED PRN Tranexamic Acid [Cyklokapron] 1,000 mg Med 10/04/19 20:56 Active Sodium Chloride 0.9% [Normal Saline] 100 ml IV ONETIME Water For Irrigation,Sterile [Sterile Water for Med 10/04/19 20:56 Active Irrigation] 1,000 ml IRR ASDIRECTED PRN miSOPROStoL [Cytotec] Med 10/04/19 20:56 Active 200 mcg PO ONETIME PRN Scalp Electrode [WOMSER] Per Unit Routine Oth 03/23/20 20:56 Ordered Peripheral IV Insertion Adult [OM.PC] Routine Oth 10/04/19 20:56 Ordered Resuscitation Status Routine Resus Stat 10/04/19 18:47 Ordered Medication Orders Butorphanol Tartrate (Stadol) 1 mg IVPUSH Q1H PRN PRN Reason: Pain Carboprost Tromethamine (Hemabate Ds) 250 mcg IM ASDIRECTED PRN PRN Reason: Post Hemorrhage Tranexamic Acid 1,000 mg/ (Sodium Chloride) 110 mls @ 660 mls/hr IV ONETIME PRN PRN Reason: Bleeding Lactated Ringer's (Ringers, Lactated) 1,000 mls @ 150 mls/hr IV ASDIRECTED ОЛЬГА Last Admin: 10/04/19 21:45 Dose: 999 mls/hr Infusion: 10/04/19 21:45 Dose: 999 mls/hr Admin: 10/04/19 21:16 Dose: 999 mls/hr Oxytocin/Sodium Chloride (Oxytocin 30 Unit/500 Ml-Ns) 30 unit in 500 mls @ 500 mls/hr IV TITRATE [facility] Lidocaine HCl (Xylocaine 1%) 50 ml INJECT ONETIME PRN PRN Reason: Laceration repair Methylergonovine Maleate (Methergine) 0.2 mg IM ASDIRECTED PRN PRN Reason: Post Hemorrhage Misoprostol (Cytotec) 200 mcg PO ONETIME PRN PRN Reason: Post Hemorrhage Nalbuphine HCl (Nubain) 10 mg IVPUSH Q1H PRN PRN Reason: Pain (severe 7-10) Ondansetron HCl (Zofran) 4 mg IVPUSH Q6H PRN PRN Reason: Nausea/Vomiting Sodium Chloride (Saline Flush) 10 ml FLUSH ASDIRECTED PRN PRN Reason: Keep Vein Open Sodium Chloride (Saline Flush) 2.5 ml FLUSH ASDIRECTED PRN PRN Reason: Keep Vein Open Sodium Chloride (Normal Saline) 10 ml IV ASDIRECTED PRN PRN Reason: IV Use Sterile Water (Sterile Water For Irrigation) 1,000 ml IRR ASDIRECTED PRN PRN Reason: delivery Assessment/Plan Comment:: IUP 373ks in early labor.
--- NOTE | 2019-10-05 03:20 | OR ---
SURGEON: Ezra Alvarez MD DATE OF PROCEDURE: Ms. Hurst is 34 years old. She is para 2-0-0-2. She is 37 weeks. She is followed in our clinic primarily by our Nurse-Television News Photographer Service. The patient is admitted in early active labor. At the time of admission, she was 3 to 4 cm, vertex, 80%, -3. Her contractions have intensified and she progressed to 5 cm, vertex, soft and mid position with spontaneous rupture of membranes. The patient does have epidural anesthesia for labor analgesia. She continued to progress without any problem. She became complete-complete and vertex and +1 station because the patient was pushing; however, her pushing was ineffective because of dense epidural. So, to aid her in the pushing and to aid in the delivery, I used kiwi vacuum extraction, and with 1 pull the fetus was delivered without any problem. Female cried immediately. score reported to be 8 and 9. Placenta delivered spontaneous, complete, and intact. There was no perineal laceration. There was no need for episiotomy. ESTIMATED BLOOD LOSS: 300 to 350 mL. There was no complication in the labor or the delivery process of this patient. LÁZARO / ERICA /[id number]
--- NOTE | 2019-10-05 07:31 | PCM48HPAN ---
Post Anesthesia Note - EVALUATION WITHIN 48HRS OF ANESTHETIC Vital Signs in Normal Range: Yes Patient Participated in Evaluation: Yes Respiratory Function Stable: Yes Airway Patent: Yes Cardiovascular Function Stable: Yes Hydration Status Stable: Yes Pain Control Satisfactory: Yes Nausea and Vomiting Control Satisfactory: Yes Mental Status Recovered: Yes
[2019-10-05] MEDS: Ibuprofen 800 MG Tab PO PRN (08:59)
--- NOTE | 2019-10-06 07:55 | PCM.PRNOTE ---
- Free Text/Narrative Note: Anes Note Patient reports continues mild back pain after delivery. Specifically, she reports midline low back pain which radiates into lateral left leg, and down left leg. She reports she had continued back pain during pregnanacy, but that back pain did not radiate into left leg. I have advised her we will watch thic, and that it should improve. She was instructed to call provider after discharge if this pain gets worse or does not resolve. Douglas Raman DOCUMENTATION IMPROVEMENT SPECIALIST
--- NOTE | 2019-10-06 08:09 | PCM.DCSUM1 ---
Discharge Summary - Hospital Course Diagnosis: Stroke: No - Discharge Data Discharge Date: 10/06/19 Discharge Disposition: Home, Self-Care 01 Condition: Good - Referral to Home Health Primary Care Physician: Carl Mladonado MD - Patient Instructions Diet: Usual Diet as Tolerated Activity: As Tolerated Driving: Do Not Drive Showering/Bathing: May Shower - Discharge Plan Home Medications: Home Meds Vits #93/Iron Fum/FA [ Formula Tablet] 1 each PO DAILY [History] Referrals: [facility] [Outside] Ezra Alvarez MD [Physician] - 11/16/19 1:30 pm - Discharge Summary/Plan Comment DC Time >30 min.: Yes - General Info Date of Service: 10/06/19 Functional Status: Reports: Pain Controlled - Review of Systems General: Reports: No Symptoms HEENT: Reports: No Symptoms Pulmonary: Reports: No Symptoms Cardiovascular: Reports: No Symptoms Gastrointestinal: Reports: No Symptoms Genitourinary: Reports: No Symptoms Musculoskeletal: Reports: No Symptoms Skin: Reports: No Symptoms Neurological: Reports: No Symptoms Psychiatric: Reports: No Symptoms - Patient Data Vitals - Most Recent: Last Vital Signs Temp 36.4 C 10/06/19 04:30 Pulse 79 10/06/19 04:30 Resp 18 10/06/19 04:30 BP 107/71 10/06/19 04:30 Pulse Ox 92 L 10/06/19 04:30 Weight - Most Recent: 90.718 kg Lab Results - Last 24 hrs: Laboratory Results - last 24 hr 10/06/19 Range/Units 05:59 Hgb 11.3 L (12.0-16.0) g/dL Hct 35.1 L (36.0-46.0) % Med Orders - Current: Current Medications Acetaminophen (Tylenol Extra Strength) 500 mg PO Q4H PRN PRN Reason: Pain Acetaminophen (Tylenol Extra Strength) 1,000 mg PO Q4H PRN PRN Reason: Pain Benzocaine/Menthol (Dermoplast Pain Relief 20%-0.5% [place]) 78 gm TOP ASDIRECTED PRN PRN Reason: Perineal Comfort Measure Bisacodyl (Dulcolax) 10 mg RECTAL ONETIME PRN PRN Reason: Constipation Butorphanol Tartrate (Stadol) 1 mg IVPUSH Q1H PRN PRN Reason: Pain Carboprost Tromethamine (Hemabate Ds) 250 mcg IM ASDIRECTED PRN PRN Reason: Post Hemorrhage Docusate Sodium (Colace) 100 mg PO BID PRN PRN Reason: Constipation Last Admin: 10/05/19 21:28 Dose: 100 mg Emollient Ointment (Lansinoh Hpa) 0 gm TOP ASDIRECTED PRN PRN Reason: Sore Nipples Last Admin: 10/05/19 08:59 Dose: 1 applic Tranexamic Acid 1,000 mg/ (Sodium Chloride) 110 mls @ 660 mls/hr IV ONETIME PRN PRN Reason: Bleeding Lactated Ringer's (Ringers, Lactated) 1,000 mls @ 150 mls/hr IV ASDIRECTED ОЛЬГА Last Admin: 10/04/19 21:45 Dose: 999 mls/hr Oxytocin/Sodium Chloride (Oxytocin 30 Unit/500 Ml-Ns) 30 unit in 500 mls @ 500 mls/hr IV TITRATE COUNTS INCLUDE 234 BEDS AT THE [facility] Last Infusion: 10/05/19 03:39 Dose: Infused Ibuprofen (Motrin) 400 mg PO Q4H PRN PRN Reason: Pain Ibuprofen (Motrin) 800 mg PO Q6H PRN PRN Reason: Pain Last Admin: 10/05/19 08:59 Dose: 800 mg Lidocaine HCl (Xylocaine 1%) 50 ml INJECT ONETIME PRN PRN Reason: Laceration repair Methylergonovine Maleate (Methergine) 0.2 mg IM ASDIRECTED PRN PRN Reason: Post Hemorrhage Misoprostol (Cytotec) 200 mcg PO ONETIME PRN PRN Reason: Post Hemorrhage Nalbuphine HCl (Nubain) 10 mg IVPUSH Q1H PRN PRN Reason: Pain (severe 7-10) Ondansetron HCl (Zofran) 4 mg IVPUSH Q6H PRN PRN Reason: Nausea/Vomiting Oxycodone HCl (Oxycodone) 5 mg PO Q2H PRN PRN Reason: Pain Last Admin: 10/06/19 04:03 Dose: 5 mg Sodium Chloride (Saline Flush) 10 ml FLUSH ASDIRECTED PRN PRN Reason: Keep Vein Open Sodium Chloride (Saline Flush) 2.5 ml FLUSH ASDIRECTED PRN PRN Reason: Keep Vein Open Sodium Chloride (Normal Saline) 10 ml IV ASDIRECTED PRN PRN Reason: IV Use Sterile Water (Sterile Water For Irrigation) 1,000 ml IRR ASDIRECTED PRN PRN Reason: delivery Mirta Rojas ([place]) 1 pad TOP ASDIRECTED PRN PRN Reason: comfort care Discontinued Medications Fentanyl/Bupivacaine HCl (Fentanyl/Bupivacaine/Ns 2 Mcg-0.125% 250 Ml) Confirm Administered Dose 250 mls @ as directed .ROUTE .STK-MED ONE Stop: 10/04/19 20:53 Ropivacaine (Naropin 0.2%) Confirm Administered Dose 20 ml .ROUTE .STK-MED ONE Stop: 10/04/19 20:53 - Exam General: Reports: Alert, Oriented HEENT: Reports: Pupils Equal, Pupils Reactive, EOMI, Mucous Membr. Moist/[place] Neck: Reports: Supple Lungs: Reports: Clear to Auscultation, Normal Respiratory Effort Cardiovascular: Reports: Regular Rate, Regular Rhythm GI/Abdominal Exam: Normal Bowel Sounds, Soft, Non-Tender, No Organomegaly, No Distention, No Abnormal Bruit, No Mass, Pelvis Stable (Female) Exam: Normal External Exam, Normal Speculum Exam, Normal Bimanual Exam Rectal (Female) Exam: Normal Exam, Normal Rectal Tone Back Exam: Reports: Normal Inspection, Full Range of Motion Extremities: Normal Inspection, Normal Range of Motion, Non-Tender, No Pedal Edema, Normal Capillary Refill Skin: Reports: Warm, Dry, Intact Wound/Incisions: Reports: Healing Well Neurological: Reports: No New Focal Deficit Psy/Mental Status: Reports: Alert, Normal Affect, Normal Mood
[2019-10-06 08:30] VITALS: BP 106/68; PULSE 74
[2019-10-06] MEDS: Ibuprofen 800 MG Tab PO PRN (09:24)
== END 2019-10-06 15:30 | disposition home or self-care (01) | DRG 807 ==
LOC: MW.OB 18:25 → MW.OBCHECK 18:25 → MW.OB 18:47 → MW.OBCHECK 18:47 → OBSVTOIN 10-05 02:25 → MW.OB 10-05 08:51
PROVIDERS: ADMIT Obstetrics & Gynecology; ATTEND Obstetrics & Gynecology
PROC: 10E0XZZ Delivery of Products of Conception, External Approach (ICD-10-PCS; principal; 2019-10-05)
PROC: 3E0R33Z Introduction of Anti-inflammatory into Spinal Canal, Percutaneous Approach (ICD-10-PCS; 2019-10-05)
DX: O62.9 Abnormality of forces of labor, unspecified (principal); Z37.0 Single live birth; Z3A.37 37 weeks gestation of pregnancy
CPT/HCPCS: 36415; 51702; 59025; 59409; 85014; 85018; 85027; 86592; 86593; 86850; 86900; 86901; A9270-GY; J2590; J7120

== ENCOUNTER 2022-12-02 13:29 | Emergency (ER) | payer MEDICAID ==
[2022-12-02] MEDS ORDERED: Sodium Chloride 0.9% 1,000 ML IV ONE (13:49)
[2022-12-02] MEDS ORDERED: Ondansetron 4 MG/2 ML SDV IVPUSH ONE (13:49)
[2022-12-02] MEDS ORDERED: Ketorolac 30 MG/ML SDV IVPUSH ONE (13:49)
[2022-12-02 13:56] LABS: BASOPHILS PERCENT AUTO 0.2 % (0.0-1.5); EOSINOPHILS ABSOLUTE AUTO 0.1 K/uL (0.0-0.7); EOSINOPHILS PERCENT AUTO 1.1 % (0.0-7.0); HEMATOCRIT 41.2 % (36.0-46.0); HEMOGLOBIN 14.2 g/dL (12.0-16.0); LYMPHOCYTES ABSOLUTE AUTO 2.5 K/uL (0.6-2.4); LYMPHOCYTES PERCENT AUTO 23.2 % (16.0-40.0); MEAN CORPUSCULAR HEMOGLOBIN 29.8 pg (27.0-32.0); MEAN CORPUSCULAR HGB CONC 34.5 g/dL (31.0-37.0); MEAN CORPUSCULAR VOLUME 86.6 fL (80.0-98.0); MONOCYTES ABSOLUTE AUTO 0.4 K/uL (0.0-0.8); MONOCYTES PERCENT AUTO 3.6 % (0.0-15.0); NEUTROPHILS ABSOLUTE AUTO 7.7 K/uL (1.4-5.7); NEUTROPHILS PERCENT AUTO 71.9 % (48.0-80.0); NRBC ABSOLUTE 0 K/uL; PLATELET COUNT,PLT 372 K/uL (150-400); RED BLOOD CELL COUNT 4.76 M/uL (4.30-5.90)
[2022-12-02 14:25] LABS: A/G RATIO 0.7 (0.9-1.6); ALBUMIN 3.5 g/dL (3.4-5.0); BILIRUBIN TOTAL 0.3 mg/dL (0.2-1.0); CALCIUM 8.5 mg/dL (8.5-10.1); CARBON DIOXIDE,CO2 22.2 mmol/L (21.0-32.0); CREATININE 0.8 mg/dL (0.6-1.0); EST CRCL DRUG DOSING (CG) 76.89 mL/min; POTASSIUM,K 3.4 mmol/L (3.5-5.1); PROTEIN TOTAL,TP 8.3 g/dL (6.4-8.2)
[2022-12-02 16:14] LABS: APPEARANCE,URINE CLEAR; BILIRUBIN,URINE NEGATIVE (NEGATIVE); COLOR,URINE YELLOW; GLUCOSE,URINE NEGATIVE (NEGATIVE); KETONES,URINE NEGATIVE (NEGATIVE); LEUKOCYTE ESTERASE,URINE NEGATIVE (NEGATIVE); NITRITE,URINE NEGATIVE (NEGATIVE); OCCULT BLOOD,URINE TRACE-INTACT (NEGATIVE); PH,URINE 5.5 (5.0-8.0); PROTEIN,URINE NEGATIVE (NEGATIVE); UROBILINOGEN,URINE 0.2 EU/dL (<2.0)
[2022-12-02 16:54] LABS: BACTERIA,URINE NOT SEEN (NEGATIVE); EPITHELIAL CELLS,URINE FEW (NONE-FEW); RBC,URINE 0-1 (0-2/HPF); WBC,URINE 0-1 (0-5/HPF)
[2022-12-02 17:12] VITALS: BP 104/68; PULSE 68
== END 2022-12-02 17:13 | disposition home or self-care (01) ==
LOC: MW.ED 13:29
DX: K80.20 Calculus of gallbladder without cholecystitis without obstruction (principal); Z88.0 Allergy status to penicillin
CPT/HCPCS: 36415; 76705; 80053; 81001; 81025; 83690; 85025; 96361; 96374; 96375; 99284; J1885; J2405; J7030